=== PATIENT | male | born 1960 | race Caucasian/White ===

== ENCOUNTER → 2024-08-19 11:34 | Outpatient (REF) | payer BC, SELFPAY | LOC: RAD 11:34 | PROVIDERS: ATTENDING PHYSICIAN Physician Assistant; FAMILY PHYSICIAN Family Medicine | DX: M25.561 Pain in right knee (principal) | CPT/HCPCS: 73564 ==

== ENCOUNTER 2025-02-08 20:15 | Inpatient (IN) | payer BC, SELFPAY ==
[2025-02-08] VITALS (8 sets, daily range): BP systolic 131–151; BP diastolic 68–88; BMI 35.0; BMI 34.7
[2025-02-08 17:10] LABS: % Basophils 0.6 % (0-2); % Eosinophils 2.1 % (0-6); % Immature Granulocytes 1.5 % (0-0.5); % Monocytes 6.7 % (1.7-9.3); % Neutrophils 69.1 % (42.2-75.2); Absolute Basophils 0.1 10^3/uL (0-0.2); Absolute Eosinophils 0.2 10^3/uL (0-0.7); Absolute Immature Granulocytes 0.2 10^3/uL (0-0.05); Absolute Lymphocytes 2.1 10^3/uL (1.2-3.4); Absolute Monocytes 0.7 10^3/uL (0.1-0.6); Absolute Neutrophils 7.2 10^3/uL (1.4-6.5); Hematocrit 43.4 % (39.0-52.0); Hemoglobin 14.7 g/dL (13.0-18.0); Mean Corp Hgb Conc. 33.9 g/dL (33.0-37.0); Mean Corpuscular Hgb 30.2 pg (27.0-31.0); Mean Corpuscular Volume 89.3 fL (80.0-94.0); Mean Platelet Volume 8.1 fL (7.4-10.4); Nucleated Red Blood Cells % 0 % (-); Platelet Count 308 10^3/uL (130-400); Red Blood Cell Count 4.86 10^6/uL (4.70-6.10); Red Cell Dist. Width 12.7 % (11.5-14.5); White Blood Cell Count 10.4 10^3/uL (4.8-10.8)
[2025-02-08 17:24] LABS: ALT (SGPT) 96 U/L (0-50); AST (SGOT) 40 U/L (17-59); Albumin 3.8 g/dl (3.5-5.0); Alkaline Phosphatase 115 U/L (38-126); Blood Urea Nitrogen 16 mg/dl (9-20); Calcium 9.6 mg/dl (8.4-10.2); Carbon Dioxide 27 mmol/L (22-30); Chloride 103 mmol/L (98-107); Glucose 118 mg/dl (70-99); Potassium 4.4 mmol/L (3.5-5.1); Sodium 138 mmol/L (135-145); Total Bilirubin 0.5 mg/dl (0.2-1.3); Total Protein 6.9 g/dl (6.3-8.2); eGFR > 60.00
--- NOTE | 2025-02-08 18:40 | ED.GENMED ---
History of Present Illness
<Lydia Carr, PARTS FABRICATOR - Last Filed: 02/09/25 00:37>
General
Chief Complaint: Swelling
Source: patient
Time Seen by Provider: 02/08/25 18:34
Nursing documentation reviewed up to this point in time: agreed with
History of Present Illness
History of Present Illness:
64 yo male with no significant PMHX presents with swollen, red, warm painful left arm.
Had left elbow bursitis drained at 8 days ago, cultures done and placed on Augmentin, has had total of 8 doses with some but little improvement.
Initially pain was 8-9/10, now 3-4/10, swelling improved 'a little'
Saw PCP today and sent here as not much improvement on antibiotics.
Pt denies fever/chills, denies n/v. Feels well otherwise.
Past History
<Lydia Carr, PARTS FABRICATOR - Last Filed: 02/09/25 00:37>
Past History
ED Past Medical History: None
ED Past Surgical History: None
Social History
Tobacco: Non-smoker
Alcohol: None
Drug: None
Living: with family
Employment: Employed
Review of Systems
<Lydia Carr, PARTS FABRICATOR - Last Filed: 02/09/25 00:37>
Review of Systems
Allergies reviewed?: Yes
All Other Systems: ROS reviewed and negative except as documented in HPI and ROS
Constitutional: Denies fever or chills
Respiratory: Denies trouble breathing
Cardiac: Denies chest pain
ABD/GI: Denies abdominal pain, nausea, vomiting or diarrhea
Skin: Reports other (Swelling, redness, warmth left arm)
Neurological: Denies numbness
Phy Exam
<Lydia Carr, PARTS FABRICATOR - Last Filed: 02/09/25 00:37>
Physical Exam
Physical Exam:
GENERAL: No acute distress. A&Ox3.
CONSTITUTIONAL: Afebrile.
RESPIRATORY: Regular respirations, nonlabored, lungs clear.
CARDIOVASCULAR: Regular rate and rhythm, no murmurs, no rubs. Radial and ulnar pulses normal. Brisk capillary refill all fingers.
GI: Soft, nontender
MUSCULOSKELETAL: Good ROM of elbow with minimal pain. Moves with ease. Well perfused.
SKIN: Warm, dry, pink. Right arm red, warm, swollen from just above elbow to wrist. It is not circumferential, no compartment syndrome. Hand mildly swollen, not red or warm.
PSYCH: Normal mood and affect. Well kept, interactive and appropriate
NEUROLOGIC: Awake, alert and oriented. No focal neurological deficits. Sensation intact distal LUE.
Scores
<Lydia Carr, PARTS FABRICATOR - Last Filed: 02/09/25 00:37>
Heart Failure Risk
Heart Failure Risk Score: Not Applicable
Course
<Lydia Carr, PARTS FABRICATOR - Last Filed: 02/09/25 00:37>
Orders/Labs/Results
Orders:
Orders
02/08/25 Breakfast
Regular
At Your Request: Full Participation
Does patient need a safe tray?: No
02/08/25 16:55
Complete Blood Count/With Diff Urgent
Comprehensive Metabolic Panel Urgent
02/08/25 19:15
Piperacillin/Tazo 4.5 Gram [Zosyn] 4.5 gram in 100 ml IV NOW
02/08/25 19:17
Vancomycin [Vancocin] 1,500 mg 0.9% Sodium Chloride 500 ml [Nss] 500 ml IV NOW
02/08/25 19:33
Vancomycin [Vancocin] 2,000 mg 0.9% Sodium Chloride 500 ml [Nss] 500 ml IV NOW
02/08/25 19:50
Admit/Transfer Patient As Directed
Co-Sign Provider:
Level of Care: Inpatient admission
Assign to:: Medical/Surgical
Physician / Group: Konstantin
Diagnosis: LUE Cellulitis
Reason for Hospitalization: LUE Cellulitis
Expected length of stay greater than two midnights?: Yes
ELOS- Estimated Length of Stay in days: 3
I certify the patient meets the requirements for IP care: Yes
PRN Pain Medication Management As Directed
May give lesser potent ordered pain med per pt: Yes
preference::
Protocol:: Medication orders for pain may be administered in a
manner that supports deferring to patient preference
when the pt is:
- Requesting an ordered lesser potent pain medication.
Least to most potent pain medications are defined
as: acetaminophen < NSAID < tramadol < opioids
(morphine, oxycodone, hydromorphone).
- Requesting a lesser dose of the same medication IF
ORDERED.
- Requesting a less intrusive route of administration
if both routes are prescribed by the provider (PO <
IV).
02/08/25 19:55
Code Status As Directed
Resuscitation Status: Full Code
02/08/25 21:33
Acetaminophen [Tylenol] 650 mg PO Q6HPRN PRN
Ketorolac [Toradol] 15 mg IV Q6HPRN PRN
02/08/25 21:33
INFECTIOUS DISEASE CONSULT Routine
Consulting Provider: Tanmay Salmon
Was physician already notified: Yes
Reason for consult: LUE Cellulitis / Bursitis
ORTHOPEDIC CONSULT Routine
Consulting Provider: Rashel Contreras
Was physician already notified: Yes
Reason for consult: Left Olecranon Bursitis / Cellulitis
Activity As Directed
Activity Level: Ambulate
I/O [Intake/ Output] As Directed
Frequency: Per unit guidelines
Pneumatic Compression Sleeves As Directed
Type: Knee high
Vital Signs As Directed
Frequency: Per unit guidelines
DX Deep Vein Thrombosis Video Routine
DX Deep Vein Thrombosis Video Routine
02/09/25 00:00
Ampicillin 2,000 mg 0.9% Sodium Chloride 100 ml [Nss] 100 ml IV Q6H
02/09/25 06:00
Basic Metabolic Panel IN AM
Complete Blood Count/No Diff IN AM
Abnormal Lab Results
02/08/25
16:55
Abs Immat Gran (auto) 0.2 H 10^3/uL
(0-0.05)
Absolute Neuts (auto) 7.2 H 10^3/uL
(1.4-6.5)
Absolute Monos (auto) 0.7 H 10^3/uL
(0.1-0.6)
Immature Gran % 1.5 H %
(0-0.5)
Lymphocytes % 20.0 L %
(20.5-51.1)
Glucose 118 H mg/dl
(70-99)
ALT 96 H U/L
(0-50)
02/08/25 16:55
02/08/25 16:55
Vital Signs
Initial and Last Documented VS:
Initial Vital Signs
Temp Pulse Resp BP Pulse Ox
98.2 F 73 16 147/88 94
02/08/25 16:37 02/08/25 16:37 02/08/25 16:37 02/08/25 16:37 02/08/25 16:37
Last Documented Vital Signs
Temp Pulse Resp BP Pulse Ox
97.7 F 58 20 151/78 95
02/08/25 23:37 02/08/25 23:37 02/08/25 23:37 02/08/25 23:37 02/08/25 23:37
Settlement Clerk consulted with Physician
Settlement Clerk consulted with physician?: Yes
Name of Physician Consulted: Quita
<Tong Devlin MD - Last Filed: 02/09/25 00:05>
Orders/Labs/Results
Orders:
Orders
02/08/25 Breakfast
Regular
At Your Request: Full Participation
Does patient need a safe tray?: No
02/08/25 16:55
Complete Blood Count/With Diff Urgent
Comprehensive Metabolic Panel Urgent
02/08/25 19:15
Piperacillin/Tazo 4.5 Gram [Zosyn] 4.5 gram in 100 ml IV NOW
02/08/25 19:17
Vancomycin [Vancocin] 1,500 mg 0.9% Sodium Chloride 500 ml [Nss] 500 ml IV NOW
02/08/25 19:33
Vancomycin [Vancocin] 2,000 mg 0.9% Sodium Chloride 500 ml [Nss] 500 ml IV NOW
02/08/25 19:50
Admit/Transfer Patient As Directed
Co-Sign Provider:
Level of Care: Inpatient admission
Assign to:: Medical/Surgical
Physician / Group: Konstantin
Diagnosis: LUE Cellulitis
Reason for Hospitalization: LUE Cellulitis
Expected length of stay greater than two midnights?: Yes
ELOS- Estimated Length of Stay in days: 3
I certify the patient meets the requirements for IP care: Yes
PRN Pain Medication Management As Directed
May give lesser potent ordered pain med per pt: Yes
preference::
Protocol:: Medication orders for pain may be administered in a
manner that supports deferring to patient preference
when the pt is:
- Requesting an ordered lesser potent pain medication.
Least to most potent pain medications are defined
as: acetaminophen < NSAID < tramadol < opioids
(morphine, oxycodone, hydromorphone).
- Requesting a lesser dose of the same medication IF
ORDERED.
- Requesting a less intrusive route of administration
if both routes are prescribed by the provider (PO <
IV).
02/08/25 19:55
Code Status As Directed
Resuscitation Status: Full Code
02/08/25 21:33
Acetaminophen [Tylenol] 650 mg PO Q6HPRN PRN
Ketorolac [Toradol] 15 mg IV Q6HPRN PRN
02/08/25 21:33
INFECTIOUS DISEASE CONSULT Routine
Consulting Provider: Tanmay Salmon
Was physician already notified: Yes
Reason for consult: LUE Cellulitis / Bursitis
ORTHOPEDIC CONSULT Routine
Consulting Provider: Rashel Contreras
Was physician already notified: Yes
Reason for consult: Left Olecranon Bursitis / Cellulitis
Activity As Directed
Activity Level: Ambulate
I/O [Intake/ Output] As Directed
Frequency: Per unit guidelines
Pneumatic Compression Sleeves As Directed
Type: Knee high
Vital Signs As Directed
Frequency: Per unit guidelines
DX Deep Vein Thrombosis Video Routine
DX Deep Vein Thrombosis Video Routine
02/09/25 00:00
Ampicillin 2,000 mg 0.9% Sodium Chloride 100 ml [Nss] 100 ml IV Q6H
02/09/25 06:00
Basic Metabolic Panel IN AM
Complete Blood Count/No Diff IN AM
Abnormal Lab Results
02/08/25
16:55
Abs Immat Gran (auto) 0.2 H 10^3/uL
(0-0.05)
Absolute Neuts (auto) 7.2 H 10^3/uL
(1.4-6.5)
Absolute Monos (auto) 0.7 H 10^3/uL
(0.1-0.6)
Immature Gran % 1.5 H %
(0-0.5)
Lymphocytes % 20.0 L %
(20.5-51.1)
Glucose 118 H mg/dl
(70-99)
ALT 96 H U/L
(0-50)
02/08/25 16:55
02/08/25 16:55
Vital Signs
Initial and Last Documented VS:
Initial Vital Signs
Temp Pulse Resp BP Pulse Ox
98.2 F 73 16 147/88 94
02/08/25 16:37 02/08/25 16:37 02/08/25 16:37 02/08/25 16:37 02/08/25 16:37
Last Documented Vital Signs
Temp Pulse Resp BP Pulse Ox
97.7 F 58 20 151/78 95
02/08/25 23:37 02/08/25 23:37 02/08/25 23:37 02/08/25 23:37 02/08/25 23:37
<Lydia Carr, PARTS FABRICATOR - Last Filed: 02/09/25 00:37>
MDM/Problems Addressed
Differential Diagnosis Includes:
cellulitis, compartment syndrome, septic joing
MDM/Problems Addressed:
64 yo male with no significant PMHX presents with swollen, red, warm painful left arm.
Had left elbow bursitis drained at 8 days ago, cultures done and placed on Augmentin, has had total of 8 doses with some but little improvement.
Initially pain was 8-9/10, now 3-4/10, swelling improved 'a little'
Saw PCP today and sent here as not much improvement on antibiotics.
Pt denies fever/chills, denies n/v. Feels well otherwise.
Afebrile, NAD
No sign of septic joint or compartment syndrome
8:15 p.m.
CBC with no clinically significant abnormality
CMP normal
Plan: Admit: Cellulitis LUE
Hospitalist notified of admission.
Dr. Devlin in to evaluate
<Lydia Carr, PARTS FABRICATOR - Last Filed: 02/09/25 00:37>
*Critical Care Note
Total Time (30-74mins, 75-104mins- exclusive of procedures): Not Applicable
ED Attending Note
<Lydia Carr NP - Last Filed: 02/09/25 00:37>
-
Portions of this chart may have been created with voice recognition software.� Occasional wrong word or��sound alike� substitutions may have occurred due to the inherent limitations of voice recognition software.
<Tong Devlin MD - Last Filed: 02/09/25 00:05>
ED Attending Note
Patient seen and examined by attending physician: Yes
ED Attending Note:
I have seen and evaluated the patient with a [id number] encounter. I have spoken to the advance practicer provider and involved in the medical history, the physical exam, medical decision making.
Evaluation and management service: agree unless noted differently below.
Results interpretation: agree unless noted differently below.
Focused HPI: 64-year-old male with history as noted presents with left arm redness, pain, swelling. Diagnosed with bursitis/cellulitis of the left elbow and arm last week at urgent care thought to be septic bursitis. Started on Augmentin has been
on it x 4 days but symptoms not improving. Sent to ER by PCP. Denies fever or chills. Denies other complaints.
Physical exam: Awake alert not in distress. Hypertension but otherwise normal vitals. He has erythema extending from the olecranon region towards the lateral forearm. Area is edematous, indurated, warm, tender to the touch. Somewhat tense
olecranon bursa which is tender to the touch. Patient is able to fully range his elbow with pain only at the extremes of extension and flexion. Good strong radial pulse noted.
Medical Decision Making: Patient presents with cellulitis/bursitis of the left arm; not improving after 4 days of antibiotics. Exam as above. Low suspicion for septic arthritis given ease of range of motion with minimal pain. Plan to admit for
treatment with IV antibiotics given failure of outpatient antibiotics.
Discharge Plan
Departure
Patient Disposition: Admit
Date of Disposition: 02/08/25
Time of Disposition: 19:17
Admit to: Med/Surg
Presentation/result/management discussed w/ accepting MD/DO: Hospitalist
Condition: Fair
Discharge Problem:
Cellulitis of left upper extremity
Interventions
Interventions:
*Risk Screen - Suicide Last Done: 02/08/25 16:37
*General Assessment Last Done: 02/08/25 16:37
*Neglect/Abuse Screening Last Done: 02/08/25 16:37
*ED- Fall Risk Assessment Last Done: 02/08/25 16:37
*ED COVID-19 Vaccine History Last Done: 02/08/25 16:37
*Nursing Disposition Last Done: 02/08/25 21:21
ED- Cardiac Assessment Last Done: 02/08/25 19:14
ED- Pulmonary Assessment Last Done: 02/08/25 19:14
ED-Skin Assessment Last Done: 02/08/25 19:14
Discharge Date and Time
Discharge Date/Time: 02/08/25 21:22
[2025-02-08] MEDS: ZOSYN 100 IV (19:25)
--- NOTE | 2025-02-08 19:56 | HPS.HSE ---
Family Physician
-
Family Physician:
Chief Complaint
-
LUE Swelling and Redness
History of Present Illness
Patient is a 64y M with no significant PMH who presents to ED complaining of LUE pain, swelling and redness. Patient states that he initially noted swelling and mild tenderness at the L elbow about 8 days ago. He denies any initial / noted
injury or trauma. Patient was seen at Urgent Care and had aspiration of the L olecranon bursa on 01/31. X-ray done at that time showed no bony abnormality. Patient was called a few days later and notified that there was bacteria in the aspirate.
He was started on Amoxicillin 875mg BID and has taken this for the past 5 days. Patient states that since the initial aspiration, his LUE has become progressively more red / swollen and warm to the touch. He denies any systemic complaints such as
fevers / chills, etc.
He was seen by his PCP today and sent to the ED for further evaluation given progression despite oral abx.
Medical History
Past Medical History
Past Medical History: Reports None
Past Surgical History: Reports Other
Additional Past Surgical History:
Liposuction
Social History
Tobacco: Non-smoker
Alcohol: Occasional
Drug: None
Family History
Family History: Not pertinent
Allergies / Home Medications
Allergies reflects when Allergies were last updated in [facility].
Home Medications with original date entered in [facility]
Allergy/Medication List:
Allergies
Allergy/AdvReac Type Severity Reaction Status Date / Time
No Known Allergies Allergy Verified 02/08/25 16:42
Home Medications
acetaminophen 325 mg tablet (Tylenol) 650 mg PO Q6HPRN PRN mild pain/fever 02/08/25
amoxicillin 875 mg tablet 875 mg PO BID 02/08/25
Review of Systems
-
History Source: Patient
A 12 point ROS was completed and negative except as noted: Yes
Constitutional: Denies Fever or Chills
Respiratory: Denies Cough or Trouble Breathing
Cardiac: Denies Chest Pain or Palpitations
Abdomen/GI: Denies Abdominal Pain, Nausea, Vomiting or Diarrhea
Musculoskeletal: Reports Joint Pain, Joint Swelling and Edema
Skin: Reports Other (Redness / warmth)
Neurological: Denies Dizzy or Headache
Physical Exam
Vital Signs
Vital Signs
Temp Pulse Resp BP Pulse Ox
98.2 F 73 16 140/78 96
02/08/25 16:37 02/08/25 16:37 02/08/25 16:37 02/08/25 19:13 02/08/25 19:15
Physical Exam
General: Other (64y M in no acute distress.)
HEENT: Moist mucous membranes
Respiratory: Clear; No Wheezes, Rales or Rhonchi
Cardiac: S1/S2 and Regular Rhythm; No Murmur
GI: Soft, Non Tender, Non Distended and Normal Bowel Sounds
Musculoskeletal: Other (Significant edema / induration of the LUE from the mid-humerus to the hand. Pos erythema and tenderness. No focal fluctuance / fluid collection. Normal ROM at the elbow.)
Neuro: AO x 3
Laboratory Results
-
02/08/25 16:55
02/08/25 16:55
Laboratory Results
Total Bilirubin 0.5 mg/dl (0.2-1.3) 02/08/25 16:55
AST 40 U/L (17-59) 02/08/25 16:55
ALT 96 U/L (0-50) H 02/08/25 16:55
Alkaline Phosphatase 115 U/L (38-126) 02/08/25 16:55
Impression/Plan
-
A/P: Patient is a 64y M with no PMH who presents to ED complaining of LUE pain, swelling and redness.
LUE Cellulitis
Left Olecranon Septic Bursitis (Beta-hemolytic Strep)
- Admit for further evaluation and treatment given failure of outpatient therapy.
- IV ampicillin for beta-hemolytic Strep by cultures (01/31).
- Supportive care / pain control.
- Follow temperature curve and monitor for improvement in symptoms.
- Ortho evaluation for possible further drainage / aspiration of infected bursa given worsening symptoms.
DVT Prophylaxis: SCDs
Code Status: Full
[2025-02-08] MEDS: VANCOCIN 540 MG IV (20:02)
--- NOTE | 2025-02-08 21:47 | CON.ORTHO ---
Consultation
-
Date/Time Consultation Requested: 02/08/252132
Date/Time Consultation Performed: 02/09/2025 0800
Requesting Provider: Dr. Jose Miguel Pryor
Performing Provider: ANNIKA Boudreaxu, Dr. Rashel Contreras
Reason for Consultation: left elbow septic bursitis
Consultation - Orthopedics
History
64-year-old male presenting to [place] emergency with recommendation of urgent care for progressive onset of left elbow pain and swelling. He was seen in urgent care on 31 January 2025 where he underwent an aspiration for suspected bursitis. He
was notified of the results on 04 February 2025 and was placed on a prescription of amoxicillin however his symptoms were spreading which recommend to the emergency room for consideration of IV antibiotics after being seen by his primary care provider.
He reports this morning is significant improvement of symptoms with his IV antibiotics.
Allergies / Home Medications
Allergy/AdvReac Type Severity Reaction Status Date / Time
No Known Allergies Allergy Verified 02/08/25 16:42
�Medication �Instructions �Recorded
acetaminophen 325 mg tablet 650 mg PO Q6HPRN PRN mild 02/08/25
(Tylenol) pain/fever
amoxicillin 875 mg tablet 875 mg PO BID 02/08/25
Past Medical History: Reports None
Past Surgical History: Reports Other
Additional Past Surgical History:
Liposuction
Social History
Tobacco: Non-smoker
Alcohol: Occasional
Drug: None
Family History
Family History: Not pertinent
Allergies / Home Medications
Allergies reflects when Allergies were last updated in [facility].
Home Medications with original date entered in [facility]
Vital Signs / Lab Results
Temp Pulse Resp BP Pulse Ox
98.0 F 64 20 139/78 98
02/08/25 21:44 02/08/25 21:44 02/08/25 21:44 02/08/25 21:44 02/08/25 21:44
PHYSICAL EXAM
Focused examination of the left upper extremity shows diffuse redness and loss of skin wrinkles throughout the left antebrachium mostly dorsal. He is neuro vastly intact C5-T1 is mostly preserved elbow range of motion with mild pain. There is mild
bogginess about the left olecranon bursa however with diminished redness of the skin in this area. There is no significant palpable fluid collections elsewhere throughout the arm.
02/08/25 16:55
02/08/25 16:55
IMAGING: Radiographs taken of the left elbow in January show no acute or chronic osseous abnormalities and soft tissue swelling about the left olecranon
LABS:
ESR and CRP pending
Assessment / Plan
64-year-old male with left upper extremity cellulitis and questionable septic bursitis with symptoms ongoing since 31 January 2025 with strep C growing in labs available in [facility]. Given that he is on oral antibiotic regimen discussed this may decrease
the sensitivity and specificity of cultures. Recommended for aspiration to assess fluid of the bursa for consideration of surgical debridement if purulent.
Utilizing sterile techniquw aspiration performed with 3 to 5 cc of mostly bloody serous fluid of the left olecranon bursa. No purulence. Compressive wrap applied. Only sufficient amount of fluid for cultures which were sent. No operative
indication at this time. Orthopedic surgical continue to follow
[2025-02-08] MEDS: AMPICILLIN 108 MG IV (23:56)
--- NOTE | 2025-02-09 00:19 | PTCARENOTE ---
Patient arrived to unit around 21:30 via stretcher with dx of LUE Cellulitis. AAOx3. Pleasant and cooperative with care. Deneis pain at current time. LUE red/ warm to touch with no open areas noted. Oriented to unit. Call lerma within reach.
[2025-02-09] MEDS: TYLENOL 650 MG PO ×2 (00:59→12:43)
[2025-02-09] MEDS: AMPICILLIN 108 MG IV ×3 (06:10→19:28)
[2025-02-09 07:00] VITALS: BP 146/90
[2025-02-09 08:07] LABS: Hematocrit 40.8 % (39.0-52.0); Hemoglobin 13.9 g/dL (13.0-18.0); Mean Corp Hgb Conc. 34.1 g/dL (33.0-37.0); Mean Corpuscular Hgb 30.4 pg (27.0-31.0); Mean Corpuscular Volume 89.3 fL (80.0-94.0); Mean Platelet Volume 8.5 fL (7.4-10.4); Platelet Count 325 10^3/uL (130-400); Red Blood Cell Count 4.57 10^6/uL (4.70-6.10); Red Cell Dist. Width 12.9 % (11.5-14.5); White Blood Cell Count 9.3 10^3/uL (4.8-10.8)
[2025-02-09 08:49] LABS: Erythrocyte Sed Rate 48 mm/hour (0-20)
--- NOTE | 2025-02-09 09:03 | W.PN.UPDATE ---
Update Note
Progress Note Update
Full H&P to follow. Patient seen and examined this morning. Cultures from outpatient urgent care positive with strep C. Patient reports improvement with IV antibiotics. Mild fluctuance of the left elbow and predominantly erythematous skin with
loss of skin wrinkles throughout the antebrachium. Given that he is on oral antibiotic regimen discussed this may decrease the sensitivity and specificity of cultures. Recommended for aspiration to assess fluid of the bursa for consideration of
surgical debridement if purulent.
Aspiration performed with 3 to 5 cc of mostly bloody serous fluid. No purulence. Compressive wrap applied. Only sufficient amount of fluid for cultures which were sent. No operative indication at this time. Orthopedic surgical continue to follow
ordered ESr and CRP for trending
[2025-02-09 09:04] LABS: Blood Urea Nitrogen 15 mg/dl (9-20); Carbon Dioxide 23 mmol/L (22-30); Chloride 106 mmol/L (98-107); Estimated Creatinine Clearance 121 ml/min; Glucose 112 mg/dl (70-99); Potassium 4.7 mmol/L (3.5-5.1); Sodium 140 mmol/L (135-145); eGFR > 60.00
--- NOTE | 2025-02-09 10:47 | W.PN.HOSP.TC ---
Today's Communication/Plan
-
Assessment / Plan
Assessment / Plan
General: No Apparent Distress, Comfortable and Conversant
HEENT: NormoCephalic, Moist mucous membranes, Atraumatic
Respiratory: Clear and Non Labored Respirations
Cardiac: S1/S2 and Regular Rhythm; No Rub or Gallop
GI: Soft, Non Tender, Non Distended and Normal Bowel Sounds
Musculoskeletal: Left elbow with Abelardo wrap in place, improving left forearm erythema, range of motion intact
Skin: Warm and dry, left forearm erythema improving
: NO Sullivan
Neuro: Awake, Alert, Nonfocal/grossly intact
Psych: Calm and Intact Judgment/Insight
Mr. Wells is a 64-year-old male with no significant medical history who presented with left elbow pain and swelling. His symptoms began approximately 8 days prior to arrival and was not associated with any trauma. He was seen in urgent care on
01/31, at which time his left olecranon bursa was aspirated and cultures later grew beta-hemolytic strep. He was started on amoxicillin which he has been taking for the past 5 days prior to arrival. Outpatient x-ray showed no bony abnormality. He
presented to the ED for further evaluation because his left elbow had become more red and swollen despite course of antibiotics. He has been admitted for further evaluation and management of left upper extremity cellulitis and bursitis.
Left upper extremity cellulitis and bursitis:
- Appears to be improving, no systemic symptoms
- Continue antibiotics with ampicillin for now
- Repeat culture taken today from bursa aspirate by Ortho, although patient had already been on antibiotics prior to arrival so cultures may be sterile at this point
- No surgical plans at this time
- Pain control as needed
- Follow-up ID recommendations
CODE STATUS: Full code
Anticipated Discharge: 24 - 48 hours
Subjective/Interval History
-
Date of Service: February 09, 2025
Patient was seen and examined at bedside this morning. Still has mild pain in left elbow which he feels is improving with IV antibiotics. Still no systemic symptoms. Bursa aspirated by Ortho this morning and no purulence noted, fluid culture sent.
Objective Data
-
Labs:
Laboratory Results
02/09/25
07:27
WBC 9.3
Hgb 13.9
Hct 40.8
Plt Count 325
Sodium 140
Potassium 4.7
Chloride 106
Carbon Dioxide 23
BUN 15
Creatinine 0.8
Glucose 112 H
Calcium 9.0
Vital Signs:
Vital Signs
Temp Pulse Resp BP Pulse Ox
97.8 F 55 20 146/90 97
02/09/25 07:00 02/09/25 07:00 02/09/25 07:00 02/09/25 07:00 02/09/25 09:00
Review of Systems
-
History Source: Patient
All other systems: Reviewed and negative
Musculoskeletal: Reports Joint Pain (Left elbow pain)
Physical Exam
-
General: No Apparent Distress
--- NOTE | 2025-02-09 11:27 | CM ---
CM following re: discharge planning.
Reviewed pt's chart, met with pt.
Pt is a 64 year old male, admitted with primary dx of LUE Cellulitis.
Pt reports he lives with spouse 2SH, 1 step to enter, has supportive daughter. 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
PCP: Mehran Enciso
Pharmacy: [facility]
D/C plan: home with anticipated no needs. Spouse to transport at discharge.
CM will follow with discharge plan updates as hospitalization progresses
--- NOTE | 2025-02-09 12:40 | CON.ID ---
Consultation
-
Date/Time Consultation Requested: February 08, 20253
Date/Time Consultation Performed: February 09, 2025 1240
Requesting Provider: Dr. Jose Miguel Pryor
Performing Provider: Dr. Yoly Wasserman
Reason for Consultation: Left upper extremity cellulitis/bursitis
Chief Complaint / Past History
Chief Complaint
Elbow swelling and redness
History of Present Illness
64-year-old male without significant past medical history who presented to the hospital on February 08 due to persistent left upper extremity swelling and redness. About a week prior to presentation, he developed swelling of his left elbow. Initially
was mild but progressively got worse. On January 31 he went to urgent care; the elbow was aspirated. He then received a call that the fluid culture was positive for group C Streptococcus. He was placed on Augmentin 8 755 mg p.o. twice daily. The
swelling and redness was slow to improve. He saw his primary care physician who sent him to the ER. He is currently on IV ampicillin. He was seen by Ortho today who aspirated the olecranon with bloody fluid. Culture pending. He reports the IV
antibiotic is working. He denies trauma to the area. No previous cuts or wounds. No fever or chills.
Past History
Past Medical History: None
Additional Past Surgical History:
liposuction
Allergy History:
No Known Allergies Allergy (Verified 02/08/25 16:42)
Medications Reviewed: Yes
Current Antibiotics:
Ampicillin 2g IV q6h day 2
Social History
Tobacco: Non-Smoker
Alcohol: Occasional
Drug: None
Employment: Retired
Family History
Family History: Not Pertinent
Review of Systems
Review of Systems
General: Negative Fever, Chills or Change in Appetite
HEENT: Negative Stiff Neck, Sinus Problems or Pharyngitis
Cardiovascular: Negative Chest Pain or Dyspnea
Respiratory: Negative Dyspnea or Cough
Gasteroenterology: Negative Nausea, Vomiting or Diarrhea
Genital / Urological: Negative Dysuria or Flank Pain
Endocrine: Negative Weakness
Neurological: Negative Dizziness
All systems: All other systems were reviewed and were negative
Vital Signs
Temp Pulse Resp BP Pulse Ox
97.8 F 55 20 146/90 97
02/09/25 07:00 02/09/25 07:00 02/09/25 07:00 02/09/25 07:00 02/09/25 09:00
Physical Exam
Physical Exam
Constitutional: No Acute Distress and Comfortable
Head: Other (No sinus tenderness)
Eyes: No Conjunctival Hemorrhage and Sclera Anicteric
Cardiovascular: Regular Rate and S1/S2
Pulmonary: Clear
Gastrointestinal: Soft, Non Tender, Non Distended and Normal Bowel Sounds
Genito-Urinary: Negative CVA Tenderness
Extremities: Negative Edema (LE)
Musculoskeletal: Other (Left olecranon positive moderate effusion, positive edema of the whole upper extremity, positive erythema from mid arm down to distal forearm, positive warmth.)
Neurological: AO x 3
Lab / Diagnostic Study Results
02/09/25 07:27
02/09/25 07:27
Abs Immat Gran (auto) 0.2 10^3/uL (0-0.05) H 02/08/25 16:55
Absolute Neuts (auto) 7.2 10^3/uL (1.4-6.5) H 02/08/25 16:55
Absolute Lymphs (auto) 2.1 10^3/uL (1.2-3.4) 02/08/25 16:55
Absolute Monos (auto) 0.7 10^3/uL (0.1-0.6) H 02/08/25 16:55
Absolute Basos (auto) 0.1 10^3/uL (0-0.2) 02/08/25 16:55
Immature Gran % 1.5 % (0-0.5) H 02/08/25 16:55
Neutrophils % 69.1 % (42.2-75.2) 02/08/25 16:55
Lymphocytes % 20.0 % (20.5-51.1) L 02/08/25 16:55
Monocytes % 6.7 % (1.7-9.3) 02/08/25 16:55
Eosinophils % 2.1 % (0-6) 02/08/25 16:55
Basophils % 0.6 % (0-2) 02/08/25 16:55
ESR Cancelled 02/09/25 07:39
C-Reactive Protein Cancelled 02/09/25 07:39
Microbiology Results
Micro:
02/09/25 08:00 Body Fluid Culture - Pending
Bursa Gram Stain - Preliminary
02/09/25 08:00 Anaerobic Culture - Pending
Bursa
01/31/25 Elbow XRAY Marked soft tissue swelling over the olecranon. Cause for this not identified by this exam.
Assessment / Plan
#Left olecranon septic bursitis
- January 31 outside aspiration culture positive for group C streptococcus
- Repeat fluid culture today pending
- Continue IV ampicillin for now.
- Elevate left upper extremity.
[2025-02-09 15:00] VITALS: BP 148/86
[2025-02-09 23:11] VITALS: BP 139/72
[2025-02-10] VITALS (18 sets, daily range): BP systolic 136–176; BP diastolic 68–90
[2025-02-10] MEDS: AMPICILLIN 108 MG IV ×5 (00:08→23:27)
[2025-02-10 07:35] LABS: % Basophils 1.1 % (0-2); % Eosinophils 2.3 % (0-6); % Immature Granulocytes 1.2 % (0-0.5); % Monocytes 7.9 % (1.7-9.3); % Neutrophils 66.5 % (42.2-75.2); Absolute Basophils 0.1 10^3/uL (0-0.2); Absolute Eosinophils 0.2 10^3/uL (0-0.7); Absolute Immature Granulocytes 0.1 10^3/uL (0-0.05); Absolute Lymphocytes 1.9 10^3/uL (1.2-3.4); Absolute Monocytes 0.7 10^3/uL (0.1-0.6); Absolute Neutrophils 6.1 10^3/uL (1.4-6.5); Hematocrit 42.5 % (39.0-52.0); Hemoglobin 14.4 g/dL (13.0-18.0); Mean Corp Hgb Conc. 33.9 g/dL (33.0-37.0); Mean Corpuscular Hgb 30.4 pg (27.0-31.0); Mean Corpuscular Volume 89.9 fL (80.0-94.0); Mean Platelet Volume 8.4 fL (7.4-10.4); Nucleated Red Blood Cells % 0 % (-); Platelet Count 329 10^3/uL (130-400); Red Blood Cell Count 4.73 10^6/uL (4.70-6.10); Red Cell Dist. Width 12.7 % (11.5-14.5); White Blood Cell Count 9.1 10^3/uL (4.8-10.8)
--- NOTE | 2025-02-10 07:48 | W.PN.UPDATE ---
Update Note
Progress Note Update
Patient feels that his left elbow has improved slightly overnight. He is afebrile but he still has fairly significant erythema, warmth and pain over the posterior aspect of his elbow. The olecranon bursa is boggy without palpable fluid
accumulation. Passive motion nonpainful within the elbow joint but extra-articular pain noted along the posterior aspect of his elbow. Distal neurovascular was intact. ESR 48, CRP 48.7 and blood cultures from urgent care revealed group C strep.
Cultures from elbow aspiration yesterday few WBCs but no organisms. I am going to make patient n.p.o. for now and Dr. Contreras will evaluate patient later for possible left elbow olecranon bursectomy. Continue with antibiotics per ID and warm
compress with K-pad.
--- NOTE | 2025-02-10 11:12 | W.PN.ID1 ---
Date of Service
Date of Service: February 10, 2025
Today's Communication
Continue ampicillin.
Assessment / Plan
#Left olecranon septic bursitis
- January 31 outside aspiration culture positive for group C streptococcus
- 02/09 Repeat fluid culture pending
- Possible bursectomy today, per Ortho
- Continue IV ampicillin
- Elevate left upper extremity.
Chief Complaint
-: Other (septic bursitis)
Subjective / Review of Systems
Left arm continues to improve.
Vital Signs / Physical Exam
Vital Signs
Vital Signs
Temp Pulse Resp BP Pulse Ox
98.5 F 56 19 152/88 98
02/10/25 07:00 02/10/25 07:00 02/10/25 07:00 02/10/25 07:00 02/10/25 08:10
Physical Exam
Constitutional: No Acute Distress and Comfortable
Eyes: No Conjunctival Hemorrhage and Sclera Anicteric
Cardiovascular: Regular Rate and S1/S2
Pulmonary: Clear
Gastrointestinal: Soft, Non Tender, Non Distended and Normal Bowel Sounds
Extremities: Other (LUE: edema and erythema now more localized to elbow)
Neurological: AO x 3
Objective Data
Lab Data
Lab Results
02/10/25 06:40
02/09/25 07:27
ESR Cancelled 02/09/25 07:39
Estimated Creat Clear 121 ml/min 02/09/25 07:27
Total Bilirubin 0.5 mg/dl (0.2-1.3) 02/08/25 16:55
AST 40 U/L (17-59) 02/08/25 16:55
ALT 96 U/L (0-50) H 02/08/25 16:55
Alkaline Phosphatase 115 U/L (38-126) 02/08/25 16:55
C-Reactive Protein Cancelled 02/09/25 07:39
Most recent labs reviewed.
Micro Results:
02/09/25 08:00 Anaerobic Culture - Preliminary
Bursa Culture pending. Anaerobic cultures are examined after 3
days incubation. Additional information to follow.
02/09/25 08:00 Body Fluid Culture - Preliminary
Bursa Gram Stain - Preliminary
01/31/25 Elbow XRAY Marked soft tissue swelling over the olecranon. Cause for this not identified by this exam.
--- NOTE | 2025-02-10 12:00 | W.PN.UPDATE ---
Update Note
Progress Note Update
Patient seen and examined. Patient with persistent cellulitis and olecranon bursitis. Boggy olecranon bursa with positive cultures. Marginally improved on IV antibiotics for 36 hours. Spoke with patient. Will proceed with olecranon bursa I&D
today. Risks, benefits, complications and postop expectations discussed. Patient in agreement. To OR today for washout.
--- NOTE | 2025-02-10 13:42 | W.PN.HOSP.TC ---
Today's Communication/Plan
-
Assessment / Plan
Assessment / Plan
General: No Apparent Distress, Comfortable and Conversant
HEENT: NormoCephalic, Moist mucous membranes, Atraumatic
Respiratory: Clear and Non Labored Respirations
Cardiac: S1/S2 and Regular Rhythm; No Rub or Gallop
GI: Soft, Non Tender, Non Distended and Normal Bowel Sounds
Musculoskeletal: Left elbow TTP, improving left forearm erythema, range of motion intact
Skin: Warm and dry, left forearm erythema improving
: NO Sullivan
Neuro: Awake, Alert, Nonfocal/grossly intact
Psych: Calm and Intact Judgment/Insight
Mr. Wells is a 64-year-old male with no significant medical history who presented with left elbow pain and swelling. His symptoms began approximately 8 days prior to arrival and was not associated with any trauma. He was seen in urgent care on
01/31, at which time his left olecranon bursa was aspirated and cultures later grew beta-hemolytic strep. He was started on amoxicillin which he has been taking for the past 5 days prior to arrival. Outpatient x-ray showed no bony abnormality. He
presented to the ED for further evaluation because his left elbow had become more red and swollen despite course of antibiotics. He has been admitted for further evaluation and management of left upper extremity cellulitis and bursitis.
Left upper extremity cellulitis and bursitis:
- Continues to improve, no systemic symptoms
- Continue antibiotics with ampicillin for now
- Repeat culture taken from bursa aspirate by Ortho, although patient had already been on antibiotics prior to arrival so cultures may be sterile at this point
- Patient is n.p.o. pending OR with Ortho for left olecranon bursa I&D and washout
- Pain control as needed
- ID following
CODE STATUS: Full code
Anticipated Discharge: 24 - 48 hours
Subjective/Interval History
-
Date of Service: February 10, 2025
Patient was seen and examined at bedside this morning. Left elbow redness and swelling slightly improved. N.p.o. for planned OR with Ortho for I&D and washout of left olecranon bursa.
Objective Data
-
Labs:
Laboratory Results
02/10/25
06:40
WBC 9.1
Hgb 14.4
Hct 42.5
Plt Count 329
Vital Signs:
Vital Signs
Temp Pulse Resp BP Pulse Ox
98.5 F 56 19 152/88 98
02/10/25 07:00 02/10/25 07:00 02/10/25 07:00 02/10/25 07:00 02/10/25 08:10
Review of Systems
-
History Source: Patient
All other systems: Reviewed and negative
Musculoskeletal: Reports Joint Pain (Left elbow pain and swelling)
Physical Exam
-
General: No Apparent Distress
--- NOTE | 2025-02-10 15:00 | W.PN.UPDATE ---
Update Note
Progress Note Update
Patient underwent left elbow I&D for septic olecranon bursitis with Dr. Contreras. Surgical dressing and sling to LUE for incision rest. Pain control and elevation prn. Keep area around elbow well padded. Continue antibiotics. Samples taken in OR and
sent to lab. Will follow culture. Orthopedics will continue to follow along.
[2025-02-10] MEDS: TORADOL 15 MG IV (15:36)
[2025-02-10] MEDS: DILAUDID 0.5 MG IV (15:38)
[2025-02-11 04:22] VITALS: BP 130/71
[2025-02-11] MEDS: AMPICILLIN 108 MG IV ×2 (06:26→11:02)
[2025-02-11 07:00] VITALS: BP 137/68
--- NOTE | 2025-02-11 08:51 | W.PN.ORTHO ---
Today's Communication / Plan
-
Appreciate the primary team, including ID, continue Tx
Dispo per CM
Follow-intra op Cx data (pending). GPC on GS (Urgent care aspirate Group C strep)
Continue IV ABX per ID
Dressing to remain, no splint necessary
Avoid deep flexion of the elbow, NWB left elbow
Encouraged wrist/hand/digit ranging
pain control
Dressings to be removed over the weekend
Outpatient Ortho follow-up in 1-2 weeks
Assessment
.
Distal Motor Intact: Yes
Dressing:
Clean, dry and intact. Soft dressing in place LUE. Sling at the bedside
Assessment:
POD#1 Left elbow (olecranon bursa) I&D
Overall ding/feeling well
Good sensation in the radial/ulna nerve distributions
Plan
.
Surgery / Date: Left elbow (OB) I&D February 25 (Diane)
Activity:
Out of bed. Gentle elbow ROM, avoid deep flexion
PT/OT
Discharge Plan: Home
Subjective
.
.:
Patient resting comfortably. Super pleasant this AM. No complaints
Vital Signs and Labs
.
Vital Signs and Labs:
Lab Results
02/10/25 06:40
02/09/25 07:27
Temp Pulse Resp BP Pulse Ox
98.6 F 58 18 130/71 96
02/11/25 04:22 02/11/25 04:22 02/11/25 04:22 02/11/25 04:22 02/11/25 04:22
[2025-02-11 11:00] VITALS: BP 127/68
--- NOTE | 2025-02-11 11:05 | W.PN.ID1 ---
Date of Service
Date of Service: February 11, 2025
Today's Communication
At time of discharge, can transition to amoxicillin 1000mg po q8h through 02/24/25.
Assessment / Plan
#Left olecranon septic bursitis
- January 31 outside aspiration culture positive for group C streptococcus
- 02/09 Repeat fluid culture group C streptococcus
- 02/10 s/p OR I+D
- Continue IV ampicillin (d4)
- At time of discharge, can transition to amoxicillin 1000mg po q8h through 02/24/25.
Chief Complaint
-: Other (septic bursitis)
Subjective / Review of Systems
Feels well.
Vital Signs / Physical Exam
Vital Signs
Vital Signs
Temp Pulse Resp BP Pulse Ox
97.9 F 57 19 137/68 97
02/11/25 07:00 02/11/25 07:00 02/11/25 07:00 02/11/25 07:00 02/11/25 07:00
Physical Exam
Constitutional: No Acute Distress and Comfortable
Pulmonary: Clear
Gastrointestinal: Soft, Non Tender and Non Distended
Extremities: Other (LUE post-op dressing in place.)
Neurological: AO x 3
Objective Data
Lab Data
Lab Results
02/10/25 06:40
02/09/25 07:27
ESR Cancelled 02/09/25 07:39
Estimated Creat Clear 121 ml/min 02/09/25 07:27
Total Bilirubin 0.5 mg/dl (0.2-1.3) 02/08/25 16:55
AST 40 U/L (17-59) 02/08/25 16:55
ALT 96 U/L (0-50) H 02/08/25 16:55
Alkaline Phosphatase 115 U/L (38-126) 02/08/25 16:55
C-Reactive Protein Cancelled 02/09/25 07:39
Most recent labs reviewed.
Micro Results:
02/10/25 14:34 Anaerobic Culture - Preliminary
Arm - Left Culture pending. Anaerobic cultures are examined after 3
days incubation. Additional information to follow.
02/10/25 14:34 Wound Culture - Preliminary
Arm - Left No growth
Gram Stain - Preliminary
02/10/25 14:34 Tissue Culture - Preliminary
Bursa No Growth After 18-24 Hours
Gram Stain - Preliminary
02/09/25 08:00 Anaerobic Culture - Preliminary
Bursa Culture pending. Anaerobic cultures are examined after 3
days incubation. Additional information to follow.
02/09/25 08:00 Body Fluid Culture - Preliminary
Bursa Group C Streptococcus
Gram Stain - Preliminary
01/31/25 Elbow XRAY Marked soft tissue swelling over the olecranon. Cause for this not identified by this exam.
Care Review
Plan reviewed with: Physician (Dr. Aragon)
--- NOTE | 2025-02-11 11:14 | W.DCSUMMARY ---
Discharge Summary
Discharge Data
Date of Admission: 02/08/25
Date of Discharge: 02/11/25
-
Pending Results: No
Hospital Course
Mr. Wells is a 64-year-old male with no significant medical history who presented with left elbow pain and swelling. His symptoms began approximately 8 days prior to arrival and was not associated with any trauma. He was seen in urgent care on
01/31, at which time his left olecranon bursa was aspirated and cultures later grew beta-hemolytic strep. He was started on amoxicillin which he has been taking for the past 5 days prior to arrival. Outpatient x-ray showed no bony abnormality. He
presented to the ED for further evaluation because his left elbow had become more red and swollen despite course of antibiotics. He was admitted for further evaluation and management of left upper extremity cellulitis and bursitis.
He was started on IV ampicillin with improvement in his erythema and swelling. Inpatient cultures taken from olecranon bursa aspirate grew group C Streptococcus, consistent with outpatient cultures taken at urgent care. He he was taken to the OR
by Ortho for I&D and washout on 02/10. He tolerated the procedure well. He will be discharged to home with a prescription for a 10-day course of amoxicillin 1 g p.o. 3 times daily. His wound dressings can be taken down over the weekend. He will
need to follow-up in the outpatient orthopedic clinic in 1 to 2 weeks. He should avoid deep flexion of left elbow and should be nonweightbearing to left elbow.
General: No Apparent Distress, Comfortable and Conversant
HEENT: NormoCephalic, Moist mucous membranes, Atraumatic
Respiratory: Clear and Non Labored Respirations
Cardiac: S1/S2 and Regular Rhythm; No Rub or Gallop
GI: Soft, Non Tender, Non Distended and Normal Bowel Sounds
Musculoskeletal: Left elbow TTP, improving left forearm erythema, range of motion intact, wound dressing in place
Skin: Warm and dry, left forearm erythema improving
: NO Sullivan
Neuro: Awake, Alert, Nonfocal/grossly intact
Psych: Calm and Intact Judgment/Insight
Discharge Plan
-
Patient Disposition: Home (Routine Discharge)
Discharge Diagnosis/Procedures: Left olecranon septic bursitis
Diet: No restrictions
Activity: No restrictions
Activity Restrictions/Additional Instructions:
Mr. Wells is a 64-year-old male with no significant medical history who presented with left elbow pain and swelling. His symptoms began approximately 8 days prior to arrival and was not associated with any trauma. He was seen in urgent care on
01/31, at which time his left olecranon bursa was aspirated and cultures later grew beta-hemolytic strep. He was started on amoxicillin which he has been taking for the past 5 days prior to arrival. Outpatient x-ray showed no bony abnormality. He
presented to the ED for further evaluation because his left elbow had become more red and swollen despite course of antibiotics. He was admitted for further evaluation and management of left upper extremity cellulitis and bursitis.
He was started on IV ampicillin with improvement in his erythema and swelling. Inpatient cultures taken from olecranon bursa aspirate grew group C Streptococcus, consistent with outpatient cultures taken at urgent care. He he was taken to the OR
by Ortho for I&D and washout on 02/10. He tolerated the procedure well. He will be discharged to home with a prescription for a 10-day course of amoxicillin 1 g p.o. 3 times daily. His wound dressings can be taken down over the weekend. He will
need to follow-up in the outpatient orthopedic clinic in 1 to 2 weeks.
Referrals:
Mehran Enciso MD [Family Provider] -
Rashel Contreras MD [Active] - in one to two weeks
Prescriptions:
New
amoxicillin 500 mg tablet
1,000 mg PO TID 10 Days Qty: 60 0RF
Continued
acetaminophen [Tylenol] 325 mg Tablet
650 mg PO Q6HPRN PRN (Reason: mild pain/fever)
Discontinued
amoxicillin 875 mg Tablet
875 mg PO BID
Discharge Orders:
Discharge Patient (As Directed); Ordered 02/11/25
Ordered By: Nathaniel Aragon
Discharge Date and Time
Print Language: TANZANIAN
--- NOTE | 2025-02-11 11:25 | CM ---
CM following re: discharge planning.
Reviewed pt's chart, met with pt.
Pt lives with spouse 2SH, 1 step to enter, has supportive daughter and pt is independent in all areas [employer]. drives, works.
Discharge order noted. Pt is aware and he stated his spouse will transport home.
No after care VN needs indicated.
D/C plan: home with no needs. Spouse to transport at discharge.
== END 2025-02-11 13:06 | disposition home or self-care (01) | DRG 501 ==
LOC: 4 WEST ACU 20:15
PROVIDERS: Student in an Organized Health Care Education/Training Program; ADMITTING PHYSICIAN Hospitalist; ATTENDING PHYSICIAN Internal Medicine; CONSULT PHYSICIAN Orthopaedic Surgery; EMERGENCY PHYSICIAN Emergency Medicine; FAMILY PHYSICIAN Family Medicine; OTHER PHYSICIAN Internal Medicine Infectious Disease
PROC: 0MB40ZZ Excision of Left Elbow Bursa and Ligament, Open Approach (ICD-10-PCS; 2025-02-10)
DX: M71.122 Other infective bursitis, left elbow (principal); L03.114 Cellulitis of left upper limb; B95.4 Other streptococcus as the cause of diseases classified elsewhere
CPT/HCPCS: 80048; 80053; 85025; 85027; 85652; 86140; 87015; 87070; 87075; 87077; 87147; 87176; 87205; 96365; 99285